=== PATIENT | female | born 1995 | race African-American/Black ===

== ENCOUNTER 2017-06-27 15:38 | Inpatient (IN) | payer MEDICAID ==
[~2017-06-27] VITALS: Ht 165.1 cm; Wt 74.8 kg
--- NOTE | 2017-06-27 16:10 | Emergency Room Report ---
History of Present Illness General Chief Complaint: Gastrointestinal Bleed Source: Patient Present Illness [facility] Patient's 22 female presented after increased rectal bleeding. The patient gradual onset of symptoms. Patient presented intermittent episodes with bloody stool. This had been intermittently. Patient had associated abdominal cramping and diarrhea. Patient stated that she had recently been treated surgical approximately week and a half ago for a left-sided ectopic . As reported having some right-sided pain to her right calf. Allergies: Coded Allergies: No Known Allergies (Unverified , 06/27/17) Patient History Past Medical History: see triage record Last Menstrual Period: now Now: No Reviewed Nursing Documentation: PMH: Agreed, PSxH: Agreed Nursing Documentation-PMH Past Medical History: No History, Except For Review of Systems All Other Systems: negative except mentioned in HPI Physical Exam Vital Signs Date Time Temp Pulse Resp B/P Pulse Ox O2 Delivery O2 Flow Rate FiO2 06/27/17 15:42 97.9 100 18 119/65 99 Room Air Sp02 EP Interpretation: reviewed, normal General Appearance: normal inspection, well appearing, no apparent distress, alert, GCS 15, non-toxic Head: normocephalic, atraumatic ENT: normal ENT inspection, hearing grossly normal, normal voice Neck: normal inspection, full range of motion, supple, no bony tend Respiratory: normal inspection, lungs clear, normal breath sounds, no respiratory distress, no retraction, no wheezing Cardiovascular #1: regular rate, rhythm, no edema Gastrointestinal: normal inspection, normal bowel sounds, non tender, soft, no guarding, no hernia Rectal: normal rectal tone, heme positive stool, hemorrhoids Genitourinary: no CVA tenderness Musculoskeletal: normal inspection, back normal, normal range of motion Neurologic: normal inspection, alert, oriented x3, responsive, typing bookkeeper III-XII nml as tested, speech normal Psychiatric: normal inspection, judgement/insight normal, mood/affect normal Skin: normal inspection, normal color, no rash Medical Decision Making Diagnostic Impression: Primary Impression: Gastrointestinal hemorrhage Additional Impressions: Anemia Right calf pain ER Course The patient presented for rectal bleeding. The differential diagnosis included but was not limited to ulcer, diverticulosis, aortic aneurysm, arteriovenous formation, coagulopathy, cancer among others. The patient appeared to have some melanotic stool. The patient has some hemorrhoids however they do not appear to be actively bleeding . The patient's test is likely positive do to recent ectopic .The patient was noted to have a markedly anemia. The patient was consented for transfusion. The patient was advised risk and benefits of transfusion and she indicated understanding and was willing to accept transfusion. Pelvic ultrasound showed no evidence of a continued hemorhhage or free fluid. Patient was given IV Pepcid. Dr. Augustin was contacted for inpatient management due to complexity of medical condition. The patient was noted to have right calf pain however this does not appear to be any different than her left calf in size. The patient currently has a contraindication to anticoagulation. Labs Test 06/27/17 17:55 White Blood Count 7.1 K/UL (4.8-10.8) Red Blood Count 3.45 M/UL (4.20-5.40) Hemoglobin 6.7 G/DL (12.0-16.0) Hematocrit 21.3 % (37.0-47.0) Mean Corpuscular Volume 62 FL (80-99) Mean Corpuscular Hemoglobin 19.3 PG (27.0-31.0) Mean Corpuscular Hemoglobin Concent 31.4 G/DL (32.0-36.0) Red Cell Distribution Width 14.5 % (11.6-14.8) Platelet Count 444 K/UL (150-450) Mean Platelet Volume 6.7 FL (6.5-10.1) Neutrophils (%) (Auto) % (45.0-75.0) Lymphocytes (%) (Auto) % (20.0-45.0) Monocytes (%) (Auto) % (1.0-10.0) Eosinophils (%) (Auto) % (0.0-3.0) Basophils (%) (Auto) % (0.0-2.0) Differential Total Cells Counted 100 Neutrophils % (Manual) 67 % (45-75) Lymphocytes % (Manual) 23 % (20-45) Monocytes % (Manual) 3 % (1-10) Eosinophils % (Manual) 6 % (0-3) Basophils % (Manual) 0 % (0-2) Band Neutrophils 1 % (0-8) Platelet Estimate Adequate Platelet Morphology Normal Polychromasia 1+ Hypochromasia 2+ Anisocytosis 1+ Microcytosis 2+ Prothrombin Time 11.0 SEC (9.30-11.50) Prothromb Time International Ratio 1.1 (0.9-1.1) Activated Partial Thromboplast Time 24 SEC (23-33) Urine Color Pale yellow Urine Appearance Clear Urine pH 6.5 (4.5-8.0) Urine Specific [place] 1.010 (1.005-1.035) Urine Protein Negative (NEGATIVE) Urine Glucose (UA) Negative (NEGATIVE) Urine Ketones Negative (NEGATIVE) Urine Occult Blood 5+ (NEGATIVE) Urine Nitrite Negative (NEGATIVE) Urine Bilirubin Negative (NEGATIVE) Urine Urobilinogen Normal MG/DL (0.0-1.0) Urine Leukocyte Esterase 1+ (NEGATIVE) Urine RBC 0-2 /HPF (0 - 2) Urine WBC 2-4 /HPF (0 - 2) Urine Squamous Epithelial Cells Moderate /LPF (NONE/OCC) Urine Bacteria Few /HPF (NONE) Urine HCG, Qualitative Positive Sodium Level 142 mEQ/L (135-145) Potassium Level 3.7 mEQ/L (3.4-4.9) Chloride Level 105 mEQ/L (98-107) Carbon Dioxide Level 27 mEQ/L (20-30) Anion Gap 10 (5-15) Blood Urea Nitrogen 9 mg/dL (7-23) Creatinine 0.7 mg/dL (0.5-0.9) Estimat Glomerular Filtration Rate > 60 mL/min (>60) Glucose Level 86 mg/dL (74-106) Calcium Level 8.7 mg/dL (8.6-10.2) Total Bilirubin 0.3 mg/dL (0.0-1.2) Aspartate Amino Transf (AST/SGOT) 9 U/L (5-40) Alanine Aminotransferase (ALT/SGPT) 5 U/L (3-33) Alkaline Phosphatase 72 U/L (35-104) Total Protein 7.8 g/dL (6.6-8.7) Albumin 3.3 g/dL (3.5-5.2) Globulin 4.5 g/dL Albumin/Globulin Ratio 0.7 (1.0-2.7) Lipase 40 U/L (< 60) Human Chorionic Gonadotropin, Quant 96 mIU/mL Rhythm Strip Diag. Results EP Interpretation: yes Rhythm: NSR, no PVC's, no ectopy Last Vital Signs Date Time Temp Pulse Resp B/P Pulse Ox O2 Delivery O2 Flow Rate FiO2 06/27/17 15:42 97.9 100 18 119/65 99 Room Air Status: unchanged Disposition: ADMITTED INPATIENT Condition: Serious Peter Razo Jun 27, 2017 16:10
[2017-06-27] MEDS ORDERED: Famotidine 20 MG/ 2ML VIAL IVP ONE (16:15)
[2017-06-27 18:15] LABS: MEAN CORPUSCULAR HEMOGLOBIN 19.3 PG (27.0-31.0); MEAN CORPUSCULAR HGB CONC 31.4 G/DL (32.0-36.0); MEAN CORPUSCULAR VOLUME 62 FL (80-99); MEAN PLATELET VOLUME 6.7 FL (6.5-10.1); PLATELET COUNT 444 K/UL (150-450); RED BLOOD COUNT 3.45 M/UL (4.20-5.40); RED CELL DISTRIBUTION WIDTH 14.5 % (11.6-14.8); WHITE BLOOD COUNT 7.1 K/UL (4.8-10.8)
[2017-06-27 18:21] LABS: APPEARANCE,URINE CLEAR; KETONES,URINE NEGATIVE (NEGATIVE); LEUKOCYTE ESTERASE ,URINE 1+ (NEGATIVE); NITRITE,URINE NEGATIVE (NEGATIVE); PH,URINE 6.5 (4.5-8.0); PROTEIN,URINE NEGATIVE (NEGATIVE); UROBILINOGEN,URINE NORMAL MG/DL (0.0-1.0)
[2017-06-27 18:28] LABS: BACTERIA,URINE FEW /HPF; RBC,URINE 0-2 /HPF (0 - 2); SQUAMOUS EPITHELIAL CELL,UR MODERATE /LPF (NONE/OCC)
[2017-06-27 18:33] LABS: INR 1.1 (0.9-1.1)
[2017-06-27 18:36] LABS: ALANINE AMINOTRANSFERASE 5 U/L (3-33); ALBUMIN/GLOBULIN RATIO 0.7 (1.0-2.7); ANION GAP 10 (5-15); ASPARTATE AMINO TRANSFERASE 9 U/L (5-40); CALCIUM 8.7 mg/dL (8.6-10.2); CARBON DIOXIDE 27 mEQ/L (20-30); CHLORIDE 105 mEQ/L (98-107); CREATININE 0.7 mg/dL (0.5-0.9); GLOMERULAR FILTRATION RATE > 60 mL/min (>60); HEMOLYSIS 1; LIPASE 40 U/L (< 60); POTASSIUM 3.7 mEQ/L (3.4-4.9); SODIUM 142 mEQ/L (135-145); TOTAL PROTEIN 7.8 g/dL (6.6-8.7)
[2017-06-27 18:37] VITALS: BP 130/56
[2017-06-27] MEDS ORDERED: NKM (18:47)
[2017-06-27 19:50] LABS: BAND NEUTROPHILS % (MANUAL) 1 % (0-8); EOSINOPHILS % (MANUAL) 6 % (0-3); LYMPHOCYTES % (MANUAL) 23 % (20-45); NEUTROPHILS % (MANUAL) 67 % (45-75); TOTAL CELLS COUNTED 100
[2017-06-27 19:51] LABS: ANISOCYTOSIS 1+; BASOPHILS % (MANUAL) 0 % (0-2); HYPOCHROMASIA 2+; MICROCYTES 2+; PLATELET ESTIMATE ADEQUATE; PLATELET MORPHOLOGY NORMAL; POLYCHROMASIA 1+
[2017-06-27 22:04] VITALS: BP 137/87
[2017-06-27] MEDS ORDERED: Mylanta II UD 30ml ORAL PRN (22:15)
[2017-06-27] MEDS ORDERED: Nitroglycerin Subl 0.4mg tab (Bottle Of 25) SL PRN (22:15)
[2017-06-27] MEDS ORDERED: Miralax 17gm pkt ORAL PRN (22:15)
[2017-06-27] MEDS ORDERED: Phytonadione 10 MG in D5W 55 ML IVPB ONE (23:00)
[2017-06-27 23:59] VITALS: BP 124/74
[2017-06-28] VITALS (7 sets, daily range): BP systolic 121–128; BP diastolic 61–78
[2017-06-28] MEDS: Morphine Sulfate 2mg/ml Inj IVP PRN ×3 (00:42→20:47)
[2017-06-28] MEDS ORDERED: Phytonadione 10 mg/mL 1ml amp ONE (04:27)
[2017-06-28] MEDS: D5NS 1,000 ML IV SCH ×4 (04:52→23:47)
[2017-06-28 07:28] LABS: MEAN CORPUSCULAR HEMOGLOBIN 20.4 PG (27.0-31.0); MEAN CORPUSCULAR HGB CONC 29.9 G/DL (32.0-36.0); MEAN CORPUSCULAR VOLUME 68 FL (80-99); PLATELET COUNT 357 K/UL (150-450); RED BLOOD COUNT 3.72 M/UL (4.20-5.40); RED CELL DISTRIBUTION WIDTH 19.3 % (11.6-14.8)
[2017-06-28 07:35] LABS: ALANINE AMINOTRANSFERASE 5 U/L (3-33); ALBUMIN/GLOBULIN RATIO 0.7 (1.0-2.7); AMYLASE 64 U/L (10-110); ANION GAP 7 (5-15); ASPARTATE AMINO TRANSFERASE 8 U/L (5-40); CALCIUM 8.4 mg/dL (8.6-10.2); CARBON DIOXIDE 27 mEQ/L (20-30); CHLORIDE 107 mEQ/L (98-107); CREATININE 0.7 mg/dL (0.5-0.9); GLOMERULAR FILTRATION RATE > 60 mL/min (>60); HEMOLYSIS 0; LIPASE 23 U/L (< 60); POTASSIUM 3.6 mEQ/L (3.4-4.9); SODIUM 141 mEQ/L (135-145)
[2017-06-28 07:41] LABS: FERRITIN 5 ng/mL (13-150)
--- NOTE | 2017-06-28 07:44 | History and Physical ---
History of Present Illness General Date patient seen: Jun 28, 2017 Time patient seen: 07:00 Reason for Hospitalization: Gastrointestinal Bleed Present Illness HPI 22 y/old female w/out significant PMH presented after rectal bleeding. Patient reported intermittent episodes of bloody stools with associated abdominal cramping and diarrhea. Patient reported surgery week and a half ago for a left-sided ectopic . Patient also reported having some right-sided pain to her right calf. Denies chest pain, SOB no fevers, chills workup in ED reveled no leucocytosis anemia-6.7/21.3 stable lytes and renal paarmerts patient was admitted to [facility] floor for further management currently denies abdominal pain, no n/v/ no hematemesis Allergies: Coded Allergies: No Known Allergies (Unverified , 06/27/17) Medication History Scheduled No Known Medications* (NKM - No Known Medications*), 0 ., (Reported) Patient History History Provided By: Patient Healthcare decision maker N Resuscitation status Full Code Advanced Directive on File Review of Systems All Other Systems: negative except mentioned in HPI Physical Exam General Appearance: no apparent distress, alert Lines, tubes and drains: peripheral HEENT: normocephalic, atraumatic, anicteric, mucous membranes moist, PERRL Neck: non-tender, supple, normal inspection Respiratory/Chest: chest wall non-tender, lungs clear, normal breath sounds, no respiratory distress, no accessory muscle use Cardiovascular/Chest: normal peripheral pulses, normal rate, regular rhythm, no JVD Abdomen: normal bowel sounds, non tender, soft Extremities: normal range of motion, non-tender, no calf tenderness, normal capillary refill Neurologic: hospital pharmacy technician II-XII grossly normal, no motor/sensory deficits, alert Musculoskeletal: normal muscle bulk Last 24 Hour Vital Signs Date Time Temp Pulse Resp B/P Pulse Ox O2 Delivery O2 Flow Rate FiO2 06/28/17 04:00 72 06/28/17 03:55 98.3 86 18 122/61 94 Room Air 06/28/17 00:00 80 06/27/17 23:59 98.5 82 17 124/74 96 Room Air 06/27/17 22:04 96.4 97 19 137/87 100 Room Air 06/27/17 21:44 99.1 93 16 126/62 100 Room Air 06/27/17 21:16 99.1 91 16 06/27/17 21:03 99.0 98 17 06/27/17 18:37 97.9 90 16 130/56 100 Room Air 06/27/17 15:42 97.9 100 18 119/65 99 Room Air Intake and Output 06/27/17 06/28/17 19:00 07:00 Intake Total 500 ml 169 ml Balance 500 ml 169 ml Intake IV Total 169 ml Other 500 ml # Voids 1 Laboratory Tests Test 06/27/17 17:55 06/28/17 06:40 White Blood Count 7.1 K/UL (4.8-10.8) 7.0 K/UL (4.8-10.8) Red Blood Count 3.45 M/UL (4.20-5.40) L 3.72 M/UL (4.20-5.40) L Hemoglobin 6.7 G/DL (12.0-16.0) *L 7.6 G/DL (12.0-16.0) L Hematocrit 21.3 % (37.0-47.0) L 25.4 % (37.0-47.0) L Mean Corpuscular Volume 62 FL (80-99) L 68 FL (80-99) #L Mean Corpuscular Hemoglobin 19.3 PG (27.0-31.0) L 20.4 PG (27.0-31.0) L Mean Corpuscular Hemoglobin Concent 31.4 G/DL (32.0-36.0) L 29.9 G/DL (32.0-36.0) L Red Cell Distribution Width 14.5 % (11.6-14.8) 19.3 % (11.6-14.8) H Platelet Count 444 K/UL (150-450) 357 K/UL (150-450) Mean Platelet Volume 6.7 FL (6.5-10.1) 6.0 FL (6.5-10.1) L Neutrophils (%) (Auto) % (45.0-75.0) % (45.0-75.0) Lymphocytes (%) (Auto) % (20.0-45.0) % (20.0-45.0) Monocytes (%) (Auto) % (1.0-10.0) % (1.0-10.0) Eosinophils (%) (Auto) % (0.0-3.0) % (0.0-3.0) Basophils (%) (Auto) % (0.0-2.0) % (0.0-2.0) Differential Total Cells Counted 100 Neutrophils % (Manual) 67 % (45-75) Pending Lymphocytes % (Manual) 23 % (20-45) Pending Monocytes % (Manual) 3 % (1-10) Eosinophils % (Manual) 6 % (0-3) H Basophils % (Manual) 0 % (0-2) Band Neutrophils 1 % (0-8) Platelet Estimate Adequate Pending Platelet Morphology Normal Pending Polychromasia 1+ Hypochromasia 2+ Anisocytosis 1+ Microcytosis 2+ Prothrombin Time 11.0 SEC (9.30-11.50) Pending Prothromb Time International Ratio 1.1 (0.9-1.1) Pending Activated Partial Thromboplast Time 24 SEC (23-33) Pending Urine Color Pale yellow Urine Appearance Clear Urine pH 6.5 (4.5-8.0) Urine Specific [place] 1.010 (1.005-1.035) Urine Protein Negative (NEGATIVE) Urine Glucose (UA) Negative (NEGATIVE) Urine Ketones Negative (NEGATIVE) Urine Occult Blood 5+ (NEGATIVE) H Urine Nitrite Negative (NEGATIVE) Urine Bilirubin Negative (NEGATIVE) Urine Urobilinogen Normal MG/DL (0.0-1.0) Urine Leukocyte Esterase 1+ (NEGATIVE) H Urine RBC 0-2 /HPF (0 - 2) Urine WBC 2-4 /HPF (0 - 2) Urine Squamous Epithelial Cells Moderate /LPF (NONE/OCC) H Urine Bacteria Few /HPF (NONE) Urine HCG, Qualitative Positive Sodium Level 142 mEQ/L (135-145) Pending Potassium Level 3.7 mEQ/L (3.4-4.9) Pending Chloride Level 105 mEQ/L (98-107) Pending Carbon Dioxide Level 27 mEQ/L (20-30) Pending Anion Gap 10 (5-15) Blood Urea Nitrogen 9 mg/dL (7-23) Pending Creatinine 0.7 mg/dL (0.5-0.9) Pending Estimat Glomerular Filtration Rate > 60 mL/min (>60) Pending Glucose Level 86 mg/dL (74-106) Pending Calcium Level 8.7 mg/dL (8.6-10.2) Pending Total Bilirubin 0.3 mg/dL (0.0-1.2) Pending Aspartate Amino Transf (AST/SGOT) 9 U/L (5-40) Pending Alanine Aminotransferase (ALT/SGPT) 5 U/L (3-33) Pending Alkaline Phosphatase 72 U/L (35-104) Pending Total Protein 7.8 g/dL (6.6-8.7) Pending Albumin 3.3 g/dL (3.5-5.2) L Pending Globulin 4.5 g/dL Pending Albumin/Globulin Ratio 0.7 (1.0-2.7) L Lipase 40 U/L (< 60) Pending Human Chorionic Gonadotropin, Quant 96 mIU/mL Iron Level Pending Unsaturated Iron Binding Pending Ferritin Pending Amylase Level Pending Vitamin B12 Level Pending Folate Pending Height (Feet): 5 Height (Inches): 5.00 Weight (Pounds): 165 Medications Current Medications Medications (Trade) Dose Ordered Sig/Mayank Route PRN Reason Start Time Stop Time Status Last Admin Dose Admin Acetaminophen (Tylenol) 650 mg Q4H PRN ORAL fever 06/27/17 22:15 07/27/17 22:14 Al Hydroxide/Mg Hydroxide (Mylanta II) 30 ml Q6H PRN ORAL dyspepsia 06/27/17 22:15 07/27/17 22:14 Dextrose (Dextrose 50%) STAT PRN IV Hypoglycemia 06/27/17 21:15 07/27/17 21:14 Dextrose/Sodium Chloride (D5ns) 1,000 ml @ 100 mls/hr Q10H IV 06/27/17 23:00 07/27/17 22:59 06/28/17 04:52 Diphenhydramine HCl (Benadryl) 25 mg Q6H PRN ORAL Itching/Pruritis 06/27/17 22:15 07/27/17 22:14 Morphine Sulfate (Morphine Sulfate) 2 mg EVERY 4 HOURS PRN IVP severe Pain (Pain Scale 7-10) 06/27/17 22:15 07/04/17 22:14 06/28/17 00:42 Nitroglycerin 0.4 mg 0.4 mg Q5M X 3 DOSES PRN SL Prn Chest Pain 06/27/17 22:15 07/27/17 22:14 Ondansetron HCl (Zofran) 4 mg Q6H PRN IVP Nausea & Vomiting 06/27/17 21:15 07/27/17 21:14 Polyethylene Glycol (Miralax) 17 gm HSPRN PRN ORAL Constipation 06/27/17 22:15 07/27/17 22:14 Temazepam (Restoril) 15 mg HSPRN PRN ORAL Insomnia 06/27/17 22:15 07/04/17 22:14 Assessment/Plan Assessment/Plan ASSESSMENT GI hemorrhage rectal bleeding microcytic anemia hx of recent ectopic R calf pain PLAN OF CARE IVF s/p transfusion monitor HH anemia w/up Venous Duplex BLE pain management Pelvic/TV US GI eval appreciated colonoscopy on Friday transfer to [facility] floor case discussed and evaluated by supervising physician Tree Marroquinmarcos)Minna NP Jun 28, 2017 07:44
[2017-06-28 07:46] LABS: INR 1.1 (0.9-1.1); PROTHROMBIN TIME 11.3 SEC (9.30-11.50)
[2017-06-28 08:02] LABS: IRON 36 ug/dL (37-145); TOTAL IRON BINDING CAPACITY 247 ug/dL (250-400)
[2017-06-28 09:26] LABS: EOSINOPHILS % (MANUAL) 5 % (0-3); LYMPHOCYTES % (MANUAL) 23 % (20-45); NEUTROPHILS % (MANUAL) 68 % (45-75); TOTAL CELLS COUNTED 100
[2017-06-28 09:27] LABS: ANISOCYTOSIS 1+; BAND NEUTROPHILS % (MANUAL) 0 % (0-8); BASOPHILS % (MANUAL) 0 % (0-2); HYPOCHROMASIA 1+; MICROCYTES 1+; PLATELET ESTIMATE ADEQUATE; PLATELET MORPHOLOGY NORMAL
--- NOTE | 2017-06-28 11:15 | Consultation ---
DATE OF CONSULTATION: 06/28/2017 GASTROENTEROLOGY CONSULTATION CHIEF COMPLAINT: No GI bleeding. HISTORY OF PRESENT ILLNESS: This is a 22-year-old female admitted to the hospital with complaint of rectal bleeding for almost a month. The patient denies any rectal pain, sometimes is fresh blood and sometimes is dark blood. No nausea. No vomiting. The patient also has some complaint of abdominal pain. PAST MEDICAL HISTORY: History of ectopic . MEDICATIONS: Please see medication reconciliation list. ALLERGIES: No known drug allergies. SOCIAL HISTORY: The patient denies any tobacco, alcohol abuse, or IV drug abuse. FAMILY HISTORY: Noncontributory. REVIEW OF SYSTEMS: A 10-point review of systems was performed and pertinent positives in the history of present illness. PHYSICAL EXAMINATION: VITAL SIGNS: Temperature 97.9, pulse is 70, respiration 18, and blood pressure is 126/55. HEENT: Normocephalic and atraumatic. Sclerae anicteric. NECK: Supple. No lymphadenopathy. CARDIOVASCULAR: Regular rate and rhythm. Plus S1 and S2. LUNGS: Decreased breath sounds bilaterally based on the supine exam. ABDOMEN: Soft and nontender. No rebound. No guarding. No peritoneal sign. EXTREMITIES: No cyanosis. No clubbing. No edema. LABORATORY DATA: On admission, white count 7.1, hemoglobin 6.7, and platelet count is 444,000. ASSESSMENT AND PLAN: This is a 22-year-old female with severe rectal bleeding. Hemoglobin down to 6.7. The patient is receiving blood transfusion. The patient needs a colonoscopy on Friday. The patient was informed of the risks and benefits of procedure and the patient agreed. We will plan for Friday. I want to thank, Dr. Rothman for this kind referral. Cristobal Cesar M.D. DR: NIEVES JOB#: [id number] CC: Derick Rothman M.D.; Fax#: [phone]
[2017-06-28] MEDS ORDERED: Tubing IV Secondary IV ONE (15:38)
[2017-06-28] MEDS ORDERED: NS 275ml ONE (15:38)
[2017-06-28] MEDS ORDERED: Tubing Blood Filter IV ONE (15:38)
[2017-06-28] MEDS ORDERED: D5NS 1000ml IV ONE (15:38)
[2017-06-28] MEDS ORDERED: Nitroglycerin Subl 0.4mg tab (Bottle Of 25) SL PRN (23:15)
[2017-06-29 00:48] VITALS: BP 134/81
[2017-06-29] MEDS ORDERED: Mylanta II UD 30ml ORAL PRN (04:15)
[2017-06-29 04:37] VITALS: BP 119/71
[2017-06-29 07:23] LABS: BASOPHILS % (AUTO) 0.6 % (0.0-2.0); EOSINOPHILS % (AUTO) 5.1 % (0.0-3.0); MEAN CORPUSCULAR HEMOGLOBIN 21.4 PG (27.0-31.0); MEAN CORPUSCULAR HGB CONC 30.5 G/DL (32.0-36.0); MEAN CORPUSCULAR VOLUME 70 FL (80-99); MEAN PLATELET VOLUME 7.2 FL (6.5-10.1); MONOCYTES % (AUTO) 8.1 % (1.0-10.0); NEUTROPHILS % (AUTO) 61.3 % (45.0-75.0); PLATELET COUNT 366 K/UL (150-450); RED BLOOD COUNT 3.72 M/UL (4.20-5.40); RED CELL DISTRIBUTION WIDTH 20.9 % (11.6-14.8); WHITE BLOOD COUNT 7.1 K/UL (4.8-10.8)
[2017-06-29 07:32] LABS: ANION GAP 11 (5-15); CALCIUM 8.5 mg/dL (8.6-10.2); CARBON DIOXIDE 24 mEQ/L (20-30); CHLORIDE 106 mEQ/L (98-107); CREATININE 0.6 mg/dL (0.5-0.9); GLOMERULAR FILTRATION RATE > 60 mL/min (>60); HEMOLYSIS 0; POTASSIUM 3.6 mEQ/L (3.4-4.9); SODIUM 141 mEQ/L (135-145)
[2017-06-29 08:17] VITALS: BP 121/74
[2017-06-29] MEDS: D5NS 1,000 ML IV SCH ×2 (09:39→18:27)
--- NOTE | 2017-06-29 11:26 | General Progress Note ---
Assessment/Plan Problem List: (1) Right calf pain ICD Codes: M79.661 - Pain in right lower leg SNOMED: 840351681 (2) Gastrointestinal hemorrhage ICD Codes: K92.2 - Gastrointestinal hemorrhage, unspecified SNOMED: 04590119 (3) Anemia ICD Codes: D64.9 - Anemia, unspecified SNOMED: 474700882 Assessment/Plan plan colonoscopy tomorrow Subjective ROS Limited/Unobtainable: Yes Allergies: Coded Allergies: No Known Allergies (Unverified , 06/27/17) Subjective no event Objective Last 24 Hour Vital Signs Date Time Temp Pulse Resp B/P Pulse Ox O2 Delivery O2 Flow Rate FiO2 06/29/17 08:17 98.2 74 20 121/74 97 Room Air 06/29/17 04:37 98.2 72 18 119/71 98 Room Air 06/29/17 00:48 98.3 86 19 134/81 97 Room Air 06/28/17 20:13 97.5 75 20 124/78 100 Room Air 06/28/17 16:27 98.2 06/28/17 15:45 78 06/28/17 15:45 97.9 76 18 121/71 06/28/17 14:00 98.2 75 18 128/70 06/28/17 13:45 97.9 77 18 128/65 06/28/17 12:50 97.5 77 18 124/65 99 Room Air 06/28/17 12:21 83 Intake and Output 06/28/17 06/29/17 19:00 07:00 Intake Total 1150 ml 240 ml Balance 1150 ml 240 ml Intake Oral 240 ml IV Total 900 ml Blood Product 250 ml # Voids 1 Laboratory Tests 06/29/17 05:10: White Blood Count 7.1, Red Blood Count 3.72L, Hemoglobin 8.0L, Hematocrit 26.1L , Mean Corpuscular Volume 70L, Mean Corpuscular Hemoglobin 21.4L, Mean Corpuscular Hemoglobin Concent 30.5L, Red Cell Distribution Width 20.9H, Platelet Count 366, Mean Platelet Volume 7.2, Neutrophils (%) (Auto) 61.3, Lymphocytes (%) (Auto) 25.0, Monocytes (%) (Auto) 8.1, Eosinophils (%) (Auto) 5.1H, Basophils (%) (Auto) 0.6, Sodium Level 141, Potassium Level 3.6, Chloride Level 106, Carbon Dioxide Level 24, Anion Gap 11, Blood Urea Nitrogen 7, Creatinine 0.6, Estimat Glomerular Filtration Rate > 60, Glucose Level 70L, Calcium Level 8.5L Height (Feet): 5 Height (Inches): 5.00 Weight (Pounds): 165 General Appearance: alert EENT: normal ENT inspection Neck: supple Cardiovascular: normal rate Respiratory/Chest: lungs clear Abdomen: normal bowel sounds, non tender, soft Extremities: non-tender LACEY SCOTT Jun 29, 2017 11:26
[2017-06-29] MEDS ORDERED: Bisacodyl EC 5mg tab ORAL ONE (11:30)
[2017-06-29] MEDS ORDERED: Nulytely 4L ORAL ONE (12:30)
--- NOTE | 2017-06-29 13:06 | Pulmonology Progress Note ---
Assessment/Plan Assessment/Plan ASSESSMENT GI hemorrhage rectal bleeding microcytic anemia hx of recent ectopic R calf pain PLAN OF CARE [facility] floor IVF s/p 3 u PRBC transfusion monitor HH , anemia w/up with low iron and low ferritin Venous Duplex BLE pain management Pelvic/TV US GI follows colonoscopy on Friday case discussed and evaluated by supervising physician Subjective Allergies: Coded Allergies: No Known Allergies (Unverified , 06/27/17) Subjective s/p 3 u PRBC HH up to 8.0/26.1 no further rectal bleeding intermittent abdominal pain Objective Last 24 Hour Vital Signs Date Time Temp Pulse Resp B/P Pulse Ox O2 Delivery O2 Flow Rate FiO2 06/29/17 08:17 98.2 74 20 121/74 97 Room Air 06/29/17 04:37 98.2 72 18 119/71 98 Room Air 06/29/17 00:48 98.3 86 19 134/81 97 Room Air 06/28/17 20:13 97.5 75 20 124/78 100 Room Air 06/28/17 16:27 98.2 06/28/17 15:45 78 06/28/17 15:45 97.9 76 18 121/71 06/28/17 14:00 98.2 75 18 128/70 06/28/17 13:45 97.9 77 18 128/65 Intake and Output 06/28/17 06/29/17 19:00 07:00 Intake Total 1150 ml 240 ml Balance 1150 ml 240 ml Intake Oral 240 ml IV Total 900 ml Blood Product 250 ml # Voids 1 Objective General Appearance: no apparent distress, alert Lines, tubes and drains: peripheral HEENT: normocephalic, atraumatic, anicteric, mucous membranes moist, PERRL Neck: non-tender, supple, normal inspection Respiratory/Chest: chest wall non-tender, lungs clear, normal breath sounds, no respiratory distress, no accessory muscle use Cardiovascular/Chest: normal peripheral pulses, normal rate, regular rhythm, no JVD Abdomen: normal bowel sounds, non tender, soft Extremities: normal range of motion, non-tender, no calf tenderness, normal capillary refill 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, no motor/sensory deficits, alert Musculoskeletal: normal muscle bulk Laboratory Tests 06/29/17 05:10: White Blood Count 7.1, Red Blood Count 3.72L, Hemoglobin 8.0L, Hematocrit 26.1L , Mean Corpuscular Volume 70L, Mean Corpuscular Hemoglobin 21.4L, Mean Corpuscular Hemoglobin Concent 30.5L, Red Cell Distribution Width 20.9H, Platelet Count 366, Mean Platelet Volume 7.2, Neutrophils (%) (Auto) 61.3, Lymphocytes (%) (Auto) 25.0, Monocytes (%) (Auto) 8.1, Eosinophils (%) (Auto) 5.1H, Basophils (%) (Auto) 0.6, Sodium Level 141, Potassium Level 3.6, Chloride Level 106, Carbon Dioxide Level 24, Anion Gap 11, Blood Urea Nitrogen 7, Creatinine 0.6, Estimat Glomerular Filtration Rate > 60, Glucose Level 70L, Calcium Level 8.5L Current Medications Medications (Trade) Dose Ordered Sig/Mayank Route PRN Reason Start Time Stop Time Status Last Admin Dose Admin Acetaminophen (Tylenol) 650 mg Q4H PRN ORAL fever 06/29/17 02:15 07/29/17 02:14 Al Hydroxide/Mg Hydroxide (Mylanta II) 30 ml Q6H PRN ORAL dyspepsia 06/29/17 04:15 07/29/17 04:14 Dextrose (Dextrose 50%) STAT PRN IV Hypoglycemia 06/29/17 21:15 07/29/17 21:14 Dextrose/Sodium Chloride (D5ns) 1,000 ml @ 100 mls/hr Q10H IV 06/28/17 23:15 07/28/17 23:14 06/29/17 09:39 Diphenhydramine HCl (Benadryl) 25 mg Q6H PRN ORAL Itching/Pruritis 06/29/17 04:15 07/29/17 04:14 Morphine Sulfate (Morphine Sulfate) 2 mg EVERY 4 HOURS PRN IVP severe Pain (Pain Scale 7-10) 06/29/17 01:00 07/06/17 00:59 Nitroglycerin (Ntg) 0.4 mg Q5M X 3 DOSES PRN SL Prn Chest Pain 06/28/17 23:15 07/28/17 23:14 Ondansetron HCl (Zofran) 4 mg Q6H PRN IVP Nausea & Vomiting 06/29/17 03:15 07/29/17 03:14 Polyethylene Glycol (Miralax) 17 gm HSPRN PRN ORAL Constipation 06/29/17 22:15 07/29/17 22:14 Temazepam (Restoril) 15 mg HSPRN PRN ORAL Insomnia 06/29/17 22:15 07/06/17 22:14 Tree ([facility])Minna NP Jun 29, 2017 13:06
[2017-06-29] MEDS ORDERED: NS 275ml ONE (15:09)
[2017-06-29] MEDS ORDERED: Tubing Blood Filter IV ONE (15:09)
[2017-06-29 16:06] VITALS: BP 123/70
[2017-06-29] MEDS ORDERED: D5 1/2NS 1000ml IV ONE (16:06)
[2017-06-29] MEDS ORDERED: D5NS 1000ml IV ONE (16:06)
[2017-06-29] MEDS ORDERED: Polyethylene Glycol 238gm bottle ORAL ONE (18:30)
[2017-06-29 20:34] VITALS: BP 125/77
[2017-06-29] MEDS ORDERED: Miralax 17gm pkt ORAL PRN (22:15)
[2017-06-30] VITALS (10 sets, daily range): BP systolic 100–134; BP diastolic 49–82
[2017-06-30] MEDS: D5NS 1,000 ML IV SCH ×2 (06:04→15:15)
--- NOTE | 2017-06-30 09:51 | Pre-Procedure Note/Attestation ---
Pre-Procedure Note/Attestation Complete Prior to Procedure Planned Procedure: not applicable Procedure Narrative: colonoscopy Indications for Procedure Pre-Operative Diagnosis: rectal bleed Attestation I attest that I discussed the nature of the procedure; its benefits; risks and complications; and alternatives (and the risks and benefits of such alternatives ), prior to the procedure, with the patient (or the patient's legal contact center representative). I attest that, if there was a reasonable possibility of needing a blood transfusion, the patient (or the patient's legal contact center representative) was given the [facility] standardized written summary, pursuant to the Alphonso Steff Blood Safety Act ([place] Health and Safety Code # 1645, as amended). I attest that I re-evaluated the patient just prior to the surgery and that there has been no change in the patient's H&P, except as documented below: LACEY SCOTT Jun 30, 2017 09:51
[2017-06-30] MEDS ORDERED: Propofol 10mg/ml 20ml IV ONE (10:00)
[2017-06-30] MEDS ORDERED: Lidocaine 1% MPF 10mg/ml 5ml ONE (10:00)
[2017-06-30] MEDS ORDERED: NS 550ML IV ONE (10:05)
--- NOTE | 2017-06-30 10:31 | Anethesia Preoperative Eval ---
Anesthesia Pre-op PMH/ROS General Date of Evaluation: Jun 30, 2017 Anesthesiologist: orin ASA Score: ASA 2 Mallampati Score Class I : Soft palate, uvula, fauces, pillars visible Class II: Soft palate, uvula, fauces visible Class III: Soft palate, base of uvula visible Class IV: Only hard plate visible Mallampati Classification: Class II Surgeon: mark Diagnosis: anemia Surgical Procedure: colonoscopy Anesthesia History: none Social History: current smoker Family History: no anesthesia problems Allergies: Coded Allergies: No Known Allergies (Unverified , 06/27/17) Medications: see eMAR Past Medical History Hematology/Immune: Reports: anemia Anesthesia Pre-op Phys. Exam Physician Exam Last Vital Signs Date Time Temp Pulse Resp B/P Pulse Ox O2 Delivery O2 Flow Rate FiO2 06/30/17 08:00 99.1 70 17 113/65 99 Room Air Constitutional: NAD Neurologic: CN 2-12 intact Respiratory: CTA Gastrointestinal: S/NT/ND Airway Exam Mallampati Score: Class II MO: full Neck: supple TMD: 2fb ROM: full Teeth: intact Anesthesia Pre-op A/P Labs Labs Test 06/27/17 17:55 06/28/17 06:40 06/29/17 05:10 White Blood Count 7.1 K/UL (4.8-10.8) 7.0 K/UL (4.8-10.8) 7.1 K/UL (4.8-10.8) Red Blood Count 3.45 M/UL (4.20-5.40) 3.72 M/UL (4.20-5.40) 3.72 M/UL (4.20-5.40) Hemoglobin 6.7 G/DL (12.0-16.0) 7.6 G/DL (12.0-16.0) 8.0 G/DL (12.0-16.0) Hematocrit 21.3 % (37.0-47.0) 25.4 % (37.0-47.0) 26.1 % (37.0-47.0) Mean Corpuscular Volume 62 FL (80-99) 68 FL (80-99) 70 FL (80-99) Mean Corpuscular Hemoglobin 19.3 PG (27.0-31.0) 20.4 PG (27.0-31.0) 21.4 PG (27.0-31.0) Mean Corpuscular Hemoglobin Concent 31.4 G/DL (32.0-36.0) 29.9 G/DL (32.0-36.0) 30.5 G/DL (32.0-36.0) Red Cell Distribution Width 14.5 % (11.6-14.8) 19.3 % (11.6-14.8) 20.9 % (11.6-14.8) Platelet Count 444 K/UL (150-450) 357 K/UL (150-450) 366 K/UL (150-450) Mean Platelet Volume 6.7 FL (6.5-10.1) 6.0 FL (6.5-10.1) 7.2 FL (6.5-10.1) Neutrophils (%) (Auto) % (45.0-75.0) % (45.0-75.0) 61.3 % (45.0-75.0) Lymphocytes (%) (Auto) % (20.0-45.0) % (20.0-45.0) 25.0 % (20.0-45.0) Monocytes (%) (Auto) % (1.0-10.0) % (1.0-10.0) 8.1 % (1.0-10.0) Eosinophils (%) (Auto) % (0.0-3.0) % (0.0-3.0) 5.1 % (0.0-3.0) Basophils (%) (Auto) % (0.0-2.0) % (0.0-2.0) 0.6 % (0.0-2.0) Differential Total Cells Counted 100 100 Neutrophils % (Manual) 67 % (45-75) 68 % (45-75) Lymphocytes % (Manual) 23 % (20-45) 23 % (20-45) Monocytes % (Manual) 3 % (1-10) 4 % (1-10) Eosinophils % (Manual) 6 % (0-3) 5 % (0-3) Basophils % (Manual) 0 % (0-2) 0 % (0-2) Band Neutrophils 1 % (0-8) 0 % (0-8) Platelet Estimate Adequate Adequate Platelet Morphology Normal Normal Polychromasia 1+ Hypochromasia 2+ 1+ Anisocytosis 1+ 1+ Microcytosis 2+ 1+ Prothrombin Time 11.0 SEC (9.30-11.50) 11.3 SEC (9.30-11.50) Prothromb Time International Ratio 1.1 (0.9-1.1) 1.1 (0.9-1.1) Activated Partial Thromboplast Time 24 SEC (23-33) 25 SEC (23-33) Urine Color Pale yellow Urine Appearance Clear Urine pH 6.5 (4.5-8.0) Urine Specific [place] 1.010 (1.005-1.035) Urine Protein Negative (NEGATIVE) Urine Glucose (UA) Negative (NEGATIVE) Urine Ketones Negative (NEGATIVE) Urine Occult Blood 5+ (NEGATIVE) Urine Nitrite Negative (NEGATIVE) Urine Bilirubin Negative (NEGATIVE) Urine Urobilinogen Normal MG/DL (0.0-1.0) Urine Leukocyte Esterase 1+ (NEGATIVE) Urine RBC 0-2 /HPF (0 - 2) Urine WBC 2-4 /HPF (0 - 2) Urine Squamous Epithelial Cells Moderate /LPF (NONE/OCC) Urine Bacteria Few /HPF (NONE) Urine HCG, Qualitative Positive Sodium Level 142 mEQ/L (135-145) 141 mEQ/L (135-145) 141 mEQ/L (135-145) Potassium Level 3.7 mEQ/L (3.4-4.9) 3.6 mEQ/L (3.4-4.9) 3.6 mEQ/L (3.4-4.9) Chloride Level 105 mEQ/L (98-107) 107 mEQ/L (98-107) 106 mEQ/L (98-107) Carbon Dioxide Level 27 mEQ/L (20-30) 27 mEQ/L (20-30) 24 mEQ/L (20-30) Anion Gap 10 (5-15) 7 (5-15) 11 (5-15) Blood Urea Nitrogen 9 mg/dL (7-23) 9 mg/dL (7-23) 7 mg/dL (7-23) Creatinine 0.7 mg/dL (0.5-0.9) 0.7 mg/dL (0.5-0.9) 0.6 mg/dL (0.5-0.9) Estimat Glomerular Filtration Rate > 60 mL/min (>60) > 60 mL/min (>60) > 60 mL/min (>60) Glucose Level 86 mg/dL (74-106) 84 mg/dL (74-106) 70 mg/dL (74-106) Calcium Level 8.7 mg/dL (8.6-10.2) 8.4 mg/dL (8.6-10.2) 8.5 mg/dL (8.6-10.2) Total Bilirubin 0.3 mg/dL (0.0-1.2) 0.6 mg/dL (0.0-1.2) Aspartate Amino Transf (AST/SGOT) 9 U/L (5-40) 8 U/L (5-40) Alanine Aminotransferase (ALT/SGPT) 5 U/L (3-33) 5 U/L (3-33) Alkaline Phosphatase 72 U/L (35-104) 63 U/L (35-104) Total Protein 7.8 g/dL (6.6-8.7) 7.0 g/dL (6.6-8.7) Albumin 3.3 g/dL (3.5-5.2) 2.9 g/dL (3.5-5.2) Globulin 4.5 g/dL 4.1 g/dL Albumin/Globulin Ratio 0.7 (1.0-2.7) 0.7 (1.0-2.7) Lipase 40 U/L (< 60) 23 U/L (< 60) Human Chorionic Gonadotropin, Quant 96 mIU/mL Iron Level 36 ug/dL (37-145) Total Iron Binding Capacity 247 ug/dL (250-400) Percent Iron Saturation 15 % (15-50) Unsaturated Iron Binding 211 ug/dL (112-346) Ferritin 5 ng/mL (13-150) Amylase Level 64 U/L (10-110) Vitamin B12 Level 475 pg/mL (211-946) Urine Test positive Serum Test 96 Risk Assessment & Plan Assessment: asa2 Plan: mac Status Change Before Surgery: No Pre-Antibiotics Drug: BARBARA Andrews Jun 30, 2017 10:31
--- NOTE | 2017-06-30 10:36 | Endoscopy Procedure Note ---
Endoscopy Procedure Note Indication for Procedure: rectal bleed Procedures Performed: colonoscopy Operative Findings/Diagnosis: colitis Specimen: yes Pt Tolerated Procedure Well: Yes Estimated Blood Loss: none Anesthesiologist: bennie Anesthesia: MAC Implant(s) used?: No 50 yrs or older w/o bx or poly: Not Applicable 10yrs. F/U not recommended: Not Applicable LACEY SCOTT Jun 30, 2017 10:36
--- NOTE | 2017-06-30 10:45 | Immediate Post-Op Evaluation ---
Immediate Post-Op Evalulation Immediate Post-Op Evalulation Procedure: colonoscopy Date of Evaluation: Jun 30, 2017 Time of Evaluation: 10:52 IV Fluids: 150ml 0.9ns Blood Products: none Estimated Blood Loss: negligible Blood Pressure Systolic: 119 Blood Pressure Diastolic: 60 Pulse Rate: 75 Respiratory Rate: 18 O2 Sat by Pulse Oximetry: 100 Temperature (Fahrenheit): 97.7 Pain Score (1-10): 0 Nausea: No Vomiting: No Complications none Patient Status: awake, reacts, patent Hydration Status: adequate Drug: BARBARA Andrews Jun 30, 2017 10:45
--- NOTE | 2017-06-30 12:09 | 48 Hour Post Anesthesia Eval ---
Post Anesthesia Evaluation Procedure: colonoscopy Date of Evaluation: Jun 30, 2017 Time of Evaluation: 12:07 Blood Pressure Systolic: 111 0: 54 Pulse Rate: 62 Respiratory Rate: 18 Temperature (Fahrenheit): 97.7 O2 Sat by Pulse Oximetry: 99 Airway: patent Nausea: No Vomiting: No Pain Intensity: 0 Hydration Status: adequate Cardiopulmonary Status: stable Mental Status/LOC: patient returned to baseline Post-Anesthesia Complications: none Follow-up care needed: N/A BARBARA ISAAC Jun 30, 2017 12:09
--- NOTE | 2017-06-30 15:30 | Pulmonology Progress Note ---
Assessment/Plan Problems: (1) Acute hemorrhagic colitis (2) Gastrointestinal hemorrhage (3) Anemia Assessment/Plan IV venofoer f/u h/h f/u GI recommendations Subjective ROS Limited/Unobtainable: No Interval Events: colonoscopy done Allergies: Coded Allergies: No Known Allergies (Unverified , 06/27/17) Objective Last 24 Hour Vital Signs Date Time Temp Pulse Resp B/P Pulse Ox O2 Delivery O2 Flow Rate FiO2 06/30/17 12:09 62 18 99 06/30/17 12:00 97.0 71 18 124/79 98 Room Air 06/30/17 10:58 72 20 129/59 100 Room Air 06/30/17 10:48 68 20 100/49 100 Room Air 06/30/17 10:45 75 18 100 06/30/17 10:43 75 20 119/60 100 Room Air 06/30/17 10:38 97.7 78 20 121/62 100 Room Air 06/30/17 08:00 99.1 70 17 113/65 99 Room Air 06/30/17 04:37 97.5 82 18 134/82 96 Room Air 06/30/17 00:29 97.1 80 19 133/78 98 Room Air 06/29/17 20:34 97.9 78 18 125/77 100 Room Air 06/29/17 16:06 97.9 76 19 123/70 99 Room Air Intake and Output 06/29/17 06/30/17 19:00 07:00 # Voids 1 5 General Appearance: WD/WN HEENT: normocephalic, atraumatic Respiratory/Chest: lungs clear, normal breath sounds Breasts: no masses Cardiovascular: normal peripheral pulses Abdomen: normal bowel sounds, soft, non tender Genitourinary: normal external genitalia Extremities: no clubbing Skin: no lesions Laboratory Tests 06/30/17 12:20: Human Chorionic Gonadotropin, Quant [Pending] Current Medications Medications (Trade) Dose Ordered Sig/Mayank Route PRN Reason Start Time Stop Time Status Last Admin Dose Admin Acetaminophen (Tylenol) 650 mg Q4H PRN ORAL Mild Pain/Temp > 100.5 06/29/17 22:00 07/29/17 21:59 06/29/17 21:52 Al Hydroxide/Mg Hydroxide (Mylanta II) 30 ml Q6H PRN ORAL dyspepsia 06/29/17 04:15 9/5/17 04:14 Dextrose (Dextrose 50%) STAT PRN IV Hypoglycemia 06/29/17 21:15 07/29/17 21:14 Dextrose/Sodium Chloride (D5ns) 1,000 ml @ 100 mls/hr Q10H IV 06/28/17 23:15 07/28/17 23:14 06/30/17 06:04 Diphenhydramine HCl (Benadryl) 25 mg Q6H PRN ORAL Itching/Pruritis 06/29/17 04:15 07/29/17 04:14 Morphine Sulfate (Morphine Sulfate) 2 mg EVERY 4 HOURS PRN IVP severe Pain (Pain Scale 7-10) 06/29/17 01:00 07/06/17 00:59 Nitroglycerin (Ntg) 0.4 mg Q5M X 3 DOSES PRN SL Prn Chest Pain 06/28/17 23:15 07/28/17 23:14 Ondansetron HCl (Zofran) 4 mg Q6H PRN IVP Nausea & Vomiting 06/29/17 18:00 07/29/17 17:59 06/29/17 18:27 Polyethylene Glycol (Miralax) 17 gm HSPRN PRN ORAL Constipation 06/29/17 22:15 07/29/17 22:14 Temazepam (Restoril) 15 mg HSPRN PRN ORAL Insomnia 06/29/17 22:15 07/06/17 22:14 PARK FARRELL Jun 30, 2017 15:30
--- NOTE | 2017-06-30 15:45 | Procedure Note ---
DATE OF PROCEDURE: 06/30/2017 PROCEDURE: Colonoscopy with biopsy. SURGEON: Cristobal Cesar M.D. ANESTHESIA: Candida Landry M.D. INSTRUMENT: Olympus adult flexible colonoscope. INDICATION: Rectal bleeding. REASON FOR PROCEDURE: The procedure, risks, benefits, and possible consequences, including hemorrhage, aspiration, perforation and infection, and alternative treatments, were explained to the patient/legal guardian by Dr. Cristobal Cesar and the patient/legal guardian understood and accepted these risks. DESCRIPTION OF PROCEDURE: After informed consent was obtained and the patient was adequately sedated, first rectal exam was performed, which was positive for external and internal hemorrhoids. Then, the scope was advanced from the cecum into the terminal ileum. Quality of prep was very good. The patient has evidence of mild to moderate inflammation starting from the sigmoid colon all the way to the cecum. The terminal ileum was relatively clean. Rectum was relatively clear. Biopsy from the cecum, transverse colon, sigmoid colon, and also ascending colon was obtained for evaluation. Retroflexion of the rectum showed evidence of internal hemorrhoids. SUMMARY OF FINDINGS: 1. Colitis starting from sigmoid colon all the way to the cecum suspicious for ulcerative colitis, which has been rectum and terminal ileum. 2. Internal and external hemorrhoids. RECOMMENDATIONS: Follow up biopsy results and treat accordingly. I want to thank, Dr. Augustin, for this kind referral. Cristobal Cesar M.D. DR: NANCY JOB#: [id number] CC: Manisha Augustin M.D.; Fax#: [phone]
[2017-06-30] MEDS: Morphine Sulfate 2mg/ml Inj IVP PRN (20:09)
[2017-06-30] MEDS ORDERED: Iron Sucrose 100 MG in NS 55 ML IVPB SCH (21:00)
[2017-07-01] VITALS: BP 130/71
--- NOTE | 2017-07-01 00:15 | Consultation ---
DATE OF CONSULTATION: 06/30/2017 INFECTIOUS DISEASE CONSULTATION CONSULTING PHYSICIAN: Joe Busch M.D. covering for Dr. Doshi. REQUESTING PHYSICIAN: Manisha Augustin M.D. REASON FOR CONSULTATION: Hemorrhagic colitis, rule out infectious etiology. HISTORY OF PRESENT ILLNESS: This is a 22-year-old female with past medical history notable for 3 successful pregnancies through complicated by perhaps pre-eclampsia and a recent ectopic , now appears to have most likely inflammatory bowel disease. The patient was admitted on 06/28/2017 for 1 month of intermittent bright red blood per rectum associated with urgency, abdominal cramping, diarrhea, and some mild tenesmus. The patient reports mild anorexia during this 1 month period along with 5-10 pounds of weight loss. She reports a longstanding history of chronic diarrhea with 2-3 loose, somewhat watery bowel movements per day, but over the last month was the first time she has had blood in her stool. She has not had any fevers or chills. Denies any rash. Denies any arthralgias. She denies any family history of inflammatory bowel disease and she does have 1 brother who is HIV positive. She denies any recent travel, traveling only to [place] about a year ago, but no travel outside the formerly [facility], [facility]. She denies any unusual recent food ingestions and she has not been on any antibiotics except perhaps a brief antibiotic course during her surgery for ectopic about 10 days prior to admission. Upon initial admission to the hospital, she was noted to be afebrile, hemodynamically stable. She did not have leukocytosis. She had a severe microcytic anemia with a hemoglobin of 6.7 g/dL and an MCV of 62, and a mild reactive thrombocytosis. Coagulation panel was normal and her lab evaluation was notable for iron deficiency with a variable iron saturation of 15% and a low ferritin of 5. Her liver function tests were otherwise remarkable for hypoalbuminemia and she did have a mildly elevated HCG compatible with recent ectopic . She did have a urinalysis on presentation that was unremarkable and she underwent colonoscopy this afternoon that demonstrated mild to moderate inflammation extending from the sigmoid colon all the way to the cecum sparing the terminal ileum and did not appear to have evidence of proctitis. She had biopsy of the cecum, transverse colon, sigmoid colon, and the ascending colon and those are pending. She also has evidence of internal and external hemorrhoids. PAST MEDICAL HISTORY: History of x2, most recently with twins 3 years ago, and a recent ectopic , status post surgery 10 days. Denies any history of sexually transmitted infections. MEDICATIONS: She was not on any medications upon admission and currently in the hospital, she is receiving intravenous iron, is on p.r.n. antiemetic Zofran, and MiraLAX as needed. ALLERGIES: No known drug allergies. FAMILY HISTORY: She denies a family history of inflammatory bowel disease or rheumatologic disease of any kind. She denies any sick contacts. She does change her child's diapers, but the children did well. REVIEW OF SYSTEMS: A 11-point review of systems otherwise negative aside from already mentioned in the history of present illness. PHYSICAL EXAMINATION: GENERAL: She is alert and oriented x3. No apparent distress. Nontoxic appearing. Pleasant affect. VITAL SIGNS: The patient has been afebrile throughout hospitalization, currently temperature 98.1 degrees Fahrenheit, blood pressure 109/60, heart rate of 70, respiratory rate 17, and she is saturating 99% on room air. HEENT: No pharyngeal erythema or exudate. No cervical lymphadenopathy. Oral dentition is within normal limits. PULMONARY: Lungs are clear to auscultation bilaterally with good inspiratory effort. CARDIOVASCULAR: Regular rate and rhythm. No murmurs, rubs, or gallops. ABDOMEN: Flat, soft, and nontender to palpation. No hepatosplenomegaly. Healed low transverse scar. No palpable masses. No epigastric pain to deep palpation. GENITOURINARY: Deferred. RECTAL: Deferred. EXTREMITIES: No edema. Peripheral pulses intact. Extremities warm and well perfused. SKIN: No skin lesions. NEUROLOGIC: No focal neurologic deficits. LABORATORY AND DIAGNOSTIC DATA: As described above, she has no imaging during this hospitalization other than a pelvic transvaginal ultrasound performed on the time of admission. 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 Her colonoscopy is highly suspicious for inflammatory bowel disease, in particular ulcerative colitis. She is without fever or leukocytosis. She lacks a compelling exposure travel history. I think it is reasonable to rule out Shiga toxin-producing Escherichia coli or enterohemorrhagic Escherichia coli given blood diarrhea and absence of fevers, but the chronicity makes it unlikely. Also can rule out other bacterial causes of bloody diarrhea to include salmonella, shigella, Campylobacter, Aeromonas, or yersinia. She does not have risk factors for Clostridium difficile, but that can present with hemorrhagic colitis or rule out Clostridium difficile as well. Finally, she lacks appreciable risk factors for amoebic dysentery. In the absence of fevers, I also think this is unlikely, especially without a compelling travel history. 1. Hemorrhagic colitis. 2. Afebrile. 3. No leukocytosis. 4. Hypoalbuminemia. 5. Recent ectopic . 6. Internal and external hemorrhoids. PLAN: 1. Defer to Primary Service and Gastroenterology for disposition. 2. Stool culture. 3. Stool C. difficile screen. 4. We will prefer to get anti-amoeba antigen on stool, but does not appear to be readily available, so obtain a serum anti-amoeba antibody, which I think is likely to be negative. 5. Stool Shiga toxin EIA. 6. Avoid antiobiotics in case proves to be STEC+. 7. Monitor stool results. 8. Monitor temperature and daily CBC. Spent 30 minutes at bedside and in reviewing medical documentation. My impression and recommendations were discussed with the patient and her nurse at bedside at the time of consultation. Again, I am covering for Dr. Doshi. I appreciate this consult. Joe Busch MD DR: JESSIE JOB#: [id number] CC: YAJAIRA
[2017-07-01] MEDS: D5NS 1,000 ML IV SCH ×2 (01:18→10:43)
[2017-07-01] MEDS: Morphine Sulfate 2mg/ml Inj IVP PRN (03:15)
[2017-07-01 04:00] VITALS: BP 109/70
[2017-07-01 05:47] LABS: MEAN CORPUSCULAR HEMOGLOBIN 22.3 PG (27.0-31.0); MEAN CORPUSCULAR HGB CONC 31.9 G/DL (32.0-36.0); MEAN CORPUSCULAR VOLUME 70 FL (80-99); MEAN PLATELET VOLUME 6.3 FL (6.5-10.1); PLATELET COUNT 380 K/UL (150-450); RED BLOOD COUNT 3.38 M/UL (4.20-5.40); RED CELL DISTRIBUTION WIDTH 21.1 % (11.6-14.8); WHITE BLOOD COUNT 6.6 K/UL (4.8-10.8)
[2017-07-01 06:08] LABS: ANION GAP 9 (5-15); CALCIUM 8.2 mg/dL (8.6-10.2); CARBON DIOXIDE 23 mEQ/L (20-30); CHLORIDE 106 mEQ/L (98-107); CREATININE 0.6 mg/dL (0.5-0.9); GLOMERULAR FILTRATION RATE > 60 mL/min (>60); HEMOLYSIS 1; POTASSIUM 3.3 mEQ/L (3.4-4.9); SODIUM 138 mEQ/L (135-145)
--- NOTE | 2017-07-01 09:02 | Diagnostic Imaging Report ---
Indication: PAIN, history of previous ectopic removal Technique: Transabdominal and endovaginal pelvic ultrasound was performed. Findings: The endometrium is hypoechoic and heterogeneous. It measures 1.8 cm in thickness. No intrauterine is identified. There is a small amount of fluid in the cul-de-sac. There is a hypoechoic mass in the right ovary with hyperechoic rim measuring 1.4 cm. The left ovary is unremarkable. Impression: Heterogeneous endometrium. No intrauterine . Mass in the right ovary, likely representing corpus luteum. Small amount of free pelvic fluid. The above findings could be consistent with early intrauterine , too early to be seen on ultrasound, ectopic , , or non state. Correlation with beta-hCG is suggested. The above report is concordant with preliminary reading by Quentin .
--- NOTE | 2017-07-01 11:43 | Diagnostic Imaging Report ---
APPROVED REPORT CPT Code: 95378 Present Symptoms Lower Extremity Pain: Bilateral BILATERAL: Imaging reveals a patent deep venous system bilaterally. There is no evidence of thrombus within the femoral, popliteal or tibial segments. The greater saphenous veins are also within normal limits. Doppler indicates normal spontaneous flow within these segments.
--- NOTE | 2017-07-01 13:00 | Pulmonology Progress Note ---
Assessment/Plan Problems: (1) Acute hemorrhagic colitis (2) Gastrointestinal hemorrhage (3) Anemia Assessment/Plan IV venofoer f/u h/h f/u GI recommendations prbc one unit today then discharge. Subjective ROS Limited/Unobtainable: No Constitutional: Reports: no symptoms HEENT: Repors: no symptoms Respiratory: Reports: no symptoms Allergies: Coded Allergies: No Known Allergies (Unverified , 06/27/17) Objective Last 24 Hour Vital Signs Date Time Temp Pulse Resp B/P Pulse Ox O2 Delivery O2 Flow Rate FiO2 07/01/17 04:00 98.5 77 18 109/70 100 Room Air 07/01/17 03:52 98.6 07/01/17 00:00 98.6 74 19 130/71 100 Room Air 06/30/17 20:00 98.4 80 18 121/75 98 Room Air 06/30/17 16:00 98.1 70 17 109/68 Room Air Intake and Output 06/30/17 07/01/17 19:00 07:00 Intake Total 500 ml 1500 ml Balance 500 ml 1500 ml Intake Oral 250 ml 240 ml IV Total 250 ml 1260 ml # Voids 1 3 General Appearance: WD/WN, no acute distress HEENT: normocephalic Respiratory/Chest: chest wall non-tender, lungs clear Breasts: no masses Cardiovascular: normal peripheral pulses Abdomen: normal bowel sounds, soft, non tender Genitourinary: normal external genitalia Extremities: no clubbing Skin: no rash Microbiology Date/Time Source Procedure Growth Status 06/30/17 19:00 Stool Clostridium difficile Toxin Assay - Final Complete Laboratory Tests 06/30/17 19:00: E.coli Shiga Toxins [Pending] 07/01/17 05:15: White Blood Count 6.6, Red Blood Count 3.38L, Hemoglobin 7.5L, Hematocrit 23.6L , Mean Corpuscular Volume 70L, Mean Corpuscular Hemoglobin 22.3L, Mean Corpuscular Hemoglobin Concent 31.9L, Red Cell Distribution Width 21.1H, Platelet Count 380, Mean Platelet Volume 6.3L, Neutrophils (%) (Auto) , Lymphocytes (%) (Auto) , Monocytes (%) (Auto) , Eosinophils (%) (Auto) , Basophils (%) (Auto) , Sodium Level 138, Potassium Level 3.3L, Chloride Level 106, Carbon Dioxide Level 23, Anion Gap 9, Blood Urea Nitrogen 5L, Creatinine 0.6, Estimat Glomerular Filtration Rate > 60, Glucose Level 89, Calcium Level 8.2L Current Medications Medications (Trade) Dose Ordered Sig/Mayank Route PRN Reason Start Time Stop Time Status Last Admin Dose Admin Acetaminophen 650 mg 650 mg Q4H PRN ORAL Mild Pain/Temp > 100.5 06/29/17 22:00 07/29/17 21:59 06/29/17 21:52 Al Hydroxide/Mg Hydroxide (Mylanta II) 30 ml Q6H PRN ORAL dyspepsia 06/29/17 04:15 07/29/17 04:14 Dextrose (Dextrose 50%) STAT PRN IV Hypoglycemia 06/29/17 21:15 07/29/17 21:14 Dextrose/Sodium Chloride (D5ns) 1,000 ml @ 100 mls/hr Q10H IV 06/28/17 23:15 07/28/17 23:14 07/01/17 10:43 Diphenhydramine HCl (Benadryl) 25 mg Q6H PRN ORAL Itching/Pruritis 06/29/17 04:15 07/29/17 04:14 Iron Sucrose/ Sodium Chloride (Venofer/Sodium Chloride) 60 ml @ 240 mls/hr BEDTIME IVPB 06/30/17 21:00 07/04/17 21:14 06/30/17 20:21 Morphine Sulfate (Morphine Sulfate) 2 mg EVERY 4 HOURS PRN IVP severe Pain (Pain Scale 7-10) 06/29/17 01:00 07/06/17 00:59 07/01/17 03:15 Nitroglycerin (Ntg) 0.4 mg Q5M X 3 DOSES PRN SL Prn Chest Pain 06/28/17 23:15 07/28/17 23:14 Ondansetron HCl (Zofran) 4 mg Q6H PRN IVP Nausea & Vomiting 06/29/17 18:00 07/29/17 17:59 06/29/17 18:27 Polyethylene Glycol (Miralax) 17 gm HSPRN PRN ORAL Constipation 06/29/17 22:15 07/29/17 22:14 Temazepam (Restoril) 15 mg HSPRN PRN ORAL Insomnia 8/6/17 22:15 07/06/17 22:14 PARK FARRELL Jul 01, 2017 13:00
--- NOTE | 2017-07-01 14:50 | Infectious Diseases Prog Note ---
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 Her colonoscopy is highly suspicious for inflammatory bowel disease, in particular ulcerative colitis. She is without fever or leukocytosis. Ruling out enteroinvasive bacterial pathogens including STEC, r/o amoebic dysentery, ruled out for C diff. anticipate infectious w/u will be negative. 1. Hemorrhagic colitis, likely IBD. 2. Afebrile. 3. No leukocytosis. 4. Hypoalbuminemia. 5. Recent ectopic . 6. Internal and external hemorrhoids. 7. C diff negative PLAN: --f/u stool STEC Shiga toxin EIA --f/u stool cx --f/u serum E histolytica Ab --avoid antibiotics. no indication for antiobiotics. --okay for discharge from ID standpoint. Subjective Constitutional: Reports: no symptoms Respiratory: Reports: no symptoms Cardiovascular: Reports: no symptoms Gastrointestinal/Abdominal: Reports: blood in stool, diarrhea Genitourinary: Reports: no symptoms Skin: Reports: no symptoms Musculoskeletal: Reports: no symptoms Allergies: Coded Allergies: No Known Allergies (Unverified , 06/27/17) Objective Vital Signs Last 24 Hour Vital Signs Date Time Temp Pulse Resp B/P Pulse Ox O2 Delivery O2 Flow Rate FiO2 07/01/17 04:00 98.5 77 18 109/70 100 Room Air 07/01/17 03:52 98.6 07/01/17 00:00 98.6 74 19 130/71 100 Room Air 06/30/17 20:00 98.4 80 18 121/75 98 Room Air 06/30/17 16:00 98.1 70 17 109/68 Room Air Height (Feet): 5 Height (Inches): 5.00 Weight (Pounds): 165 Objective GENERAL: She is alert and oriented x3. No apparent distress. Nontoxic appearing. Pleasant affect. VITAL SIGNS: The patient has been afebrile throughout hospitalization, currently temperature 98.1 degrees Fahrenheit, blood pressure 109/60, heart rate of 70, respiratory rate 17, and she is saturating 99% on room air. HEENT: No pharyngeal erythema or exudate. No cervical lymphadenopathy. Oral dentition is within normal limits. PULMONARY: Lungs are clear to auscultation bilaterally with good inspiratory effort. CARDIOVASCULAR: Regular rate and rhythm. No murmurs, rubs, or gallops. ABDOMEN: Flat, soft, and nontender to palpation. No hepatosplenomegaly. Healed low transverse scar. No palpable masses. No epigastric pain to deep palpation. GENITOURINARY: Deferred. RECTAL: Deferred. EXTREMITIES: No edema. Peripheral pulses intact. Extremities warm and well perfused. SKIN: No skin lesions. NEUROLOGIC: No focal neurologic deficits. Microbiology Date/Time Source Procedure Growth Status 06/30/17 19:00 Stool Clostridium difficile Toxin Assay - Final Complete Laboratory Tests Test 06/30/17 19:00 07/01/17 05:15 E.coli Shiga Toxins Pending White Blood Count 6.6 K/UL (4.8-10.8) Red Blood Count 3.38 M/UL (4.20-5.40) L Hemoglobin 7.5 G/DL (12.0-16.0) L Hematocrit 23.6 % (37.0-47.0) L Mean Corpuscular Volume 70 FL (80-99) L Mean Corpuscular Hemoglobin 22.3 PG (27.0-31.0) L Mean Corpuscular Hemoglobin Concent 31.9 G/DL (32.0-36.0) L Red Cell Distribution Width 21.1 % (11.6-14.8) H Platelet Count 380 K/UL (150-450) Mean Platelet Volume 6.3 FL (6.5-10.1) L Neutrophils (%) (Auto) % (45.0-75.0) Lymphocytes (%) (Auto) % (20.0-45.0) Monocytes (%) (Auto) % (1.0-10.0) Eosinophils (%) (Auto) % (0.0-3.0) Basophils (%) (Auto) % (0.0-2.0) Sodium Level 138 mEQ/L (135-145) Potassium Level 3.3 mEQ/L (3.4-4.9) L Chloride Level 106 mEQ/L (98-107) Carbon Dioxide Level 23 mEQ/L (20-30) Anion Gap 9 (5-15) Blood Urea Nitrogen 5 mg/dL (7-23) L Creatinine 0.6 mg/dL (0.5-0.9) Estimat Glomerular Filtration Rate > 60 mL/min (>60) Glucose Level 89 mg/dL (74-106) Calcium Level 8.2 mg/dL (8.6-10.2) L Current Medications Medications (Trade) Dose Ordered Sig/Mayank Route PRN Reason Start Time Stop Time Status Last Admin Dose Admin Acetaminophen 650 mg 650 mg Q4H PRN ORAL Mild Pain/Temp > 100.5 06/29/17 22:00 07/29/17 21:59 06/29/17 21:52 Al Hydroxide/Mg Hydroxide (Mylanta II) 30 ml Q6H PRN ORAL dyspepsia 06/29/17 04:15 07/29/17 04:14 Dextrose (Dextrose 50%) STAT PRN IV Hypoglycemia 06/29/17 21:15 07/29/17 21:14 Dextrose/Sodium Chloride (D5ns) 1,000 ml @ 100 mls/hr Q10H IV 06/28/17 23:15 07/28/17 23:14 07/01/17 10:43 Diphenhydramine HCl (Benadryl) 25 mg Q6H PRN ORAL Itching/Pruritis 06/29/17 04:15 07/29/17 04:14 Iron Sucrose/ Sodium Chloride (Venofer/Sodium Chloride) 60 ml @ 240 mls/hr BEDTIME IVPB 06/30/17 21:00 07/04/17 21:14 06/30/17 20:21 Morphine Sulfate (Morphine Sulfate) 2 mg EVERY 4 HOURS PRN IVP severe Pain (Pain Scale 7-10) 06/29/17 01:00 07/06/17 00:59 07/01/17 03:15 Nitroglycerin (Ntg) 0.4 mg Q5M X 3 DOSES PRN SL Prn Chest Pain 06/28/17 23:15 07/28/17 23:14 Ondansetron HCl (Zofran) 4 mg Q6H PRN IVP Nausea & Vomiting 06/29/17 18:00 07/29/17 17:59 06/29/17 18:27 Polyethylene Glycol (Miralax) 17 gm HSPRN PRN ORAL Constipation 06/29/17 22:15 07/29/17 22:14 Temazepam (Restoril) 15 mg HSPRN PRN ORAL Insomnia 06/29/17 22:15 07/06/17 22:14 Joe Busch M.D. Jul 01, 2017 14:49
--- NOTE | 2017-07-01 15:29 | GI Progress Note ---
Assessment/Plan Problems: (1) Acute hemorrhagic colitis ICD Codes: K52.9 - Noninfective gastroenteritis and colitis, unspecified SNOMED: 07780639 (2) Anemia ICD Codes: D64.9 - Anemia, unspecified SNOMED: 064135063 (3) Right calf pain ICD Codes: M79.661 - Pain in right lower leg SNOMED: 637125599 (4) Gastrointestinal hemorrhage ICD Codes: K92.2 - Gastrointestinal hemorrhage, unspecified SNOMED: 06488876 Status: stable Status Narrative S/P Colonoscopy SUMMARY OF FINDINGS: 1. Colitis starting from sigmoid colon all the way to the cecum suspicious for ulcerative colitis, which has been biopsied rectum and terminal ileum. 2. Internal and external hemorrhoids. RECOMMENDATIONS: okay for DC per GI standpoint regular diet, tolerating anusol HC prn outpatient follow up with us follow up biopsy Subjective Subjective rectal bleeding resolved Objective Last 24 Hour Vital Signs Date Time Temp Pulse Resp B/P Pulse Ox O2 Delivery O2 Flow Rate FiO2 07/01/17 04:00 98.5 77 18 109/70 100 Room Air 07/01/17 03:52 98.6 07/01/17 00:00 98.6 74 19 130/71 100 Room Air 06/30/17 20:00 98.4 80 18 121/75 98 Room Air 06/30/17 16:00 98.1 70 17 109/68 Room Air Intake and Output 06/30/17 07/01/17 19:00 07:00 Intake Total 500 ml 1500 ml Balance 500 ml 1500 ml Intake Oral 250 ml 240 ml IV Total 250 ml 1260 ml # Voids 1 3 Laboratory Tests Test 06/30/17 19:00 07/01/17 05:15 E.coli Shiga Toxins Pending White Blood Count 6.6 K/UL (4.8-10.8) Red Blood Count 3.38 M/UL (4.20-5.40) L Hemoglobin 7.5 G/DL (12.0-16.0) L Hematocrit 23.6 % (37.0-47.0) L Mean Corpuscular Volume 70 FL (80-99) L Mean Corpuscular Hemoglobin 22.3 PG (27.0-31.0) L Mean Corpuscular Hemoglobin Concent 31.9 G/DL (32.0-36.0) L Red Cell Distribution Width 21.1 % (11.6-14.8) H Platelet Count 380 K/UL (150-450) Mean Platelet Volume 6.3 FL (6.5-10.1) L Neutrophils (%) (Auto) % (45.0-75.0) Lymphocytes (%) (Auto) % (20.0-45.0) Monocytes (%) (Auto) % (1.0-10.0) Eosinophils (%) (Auto) % (0.0-3.0) Basophils (%) (Auto) % (0.0-2.0) Sodium Level 138 mEQ/L (135-145) Potassium Level 3.3 mEQ/L (3.4-4.9) L Chloride Level 106 mEQ/L (98-107) Carbon Dioxide Level 23 mEQ/L (20-30) Anion Gap 9 (5-15) Blood Urea Nitrogen 5 mg/dL (7-23) L Creatinine 0.6 mg/dL (0.5-0.9) Estimat Glomerular Filtration Rate > 60 mL/min (>60) Glucose Level 89 mg/dL (74-106) Calcium Level 8.2 mg/dL (8.6-10.2) L Microbiology Date/Time Source Procedure Growth Status 06/30/17 19:00 Stool Clostridium difficile Toxin Assay - Final Complete Height (Feet): 5 Height (Inches): 5.00 Weight (Pounds): 165 General Appearance: no apparent distress, alert Cardiovascular: normal rate Respiratory/Chest: normal breath sounds, no respiratory distress Abdominal Exam: normal bowel sounds, non tender, soft Extremities: normal range of motion Lexy Brady N.P. Jul 01, 2017 15:29
[2017-07-01 16:00] VITALS: BP 136/67
[2017-07-01 20:00] VITALS: BP 124/71
[2017-07-01] MEDS ORDERED: D5NS 1000ml IV ONE (21:44)
[2017-07-01] MEDS ORDERED: Tubing Blood Filter IV ONE (21:44)
[2017-07-01] MEDS ORDERED: Tubing IV Secondary IV ONE (21:44)
[2017-07-02 09:24] LABS: OTHERS PATHOLOGIST COMMENT
--- NOTE | 2017-07-03 15:47 | Discharge Summary ---
Discharge Summary Hospital Course Date of Admission Jun 27, 2017 at 18:32 Date of Discharge Jul 01, 2017 at 21:45 Admitting Diagnosis SEVERE ANEMIA HPI Sanju Callahan is a 22 year old female who was admitted on Jun 27, 2017 at 18:32 for Severe Anemia Hospital Course [id number] Discharge Discharge Disposition Patient was discharged to Home (01) Discharge Diagnoses: Adina Prado NP Jul 03, 2017 15:47
--- NOTE | 2017-07-03 22:01 | Discharge Summary 2 SIG ---
DATE OF ADMISSION: 06/27/2017 DATE OF DISCHARGE: 07/01/2017 CONSULTANTS: 1. Cristobal Cesar M.D. 2. Joe Busch M.D. BRIEF HOSPITAL COURSE: The patient is a 22-year-old female without significant medical history, presented to ED for evaluation of GI bleed. The patient reported intermittent episodes of bloody stools with associated abdominal cramping and diarrhea. She had a surgery a week prior for left-sided ectopic and reported having right-sided pain radiating down to the right calf. On evaluation at ED, she was found to have anemia with hemoglobin of 6.7 and hematocrit of 21.3. HCG was positive, which is likely secondary to recent ectopic . Pelvic ultrasound showed no evidence of intrauterine . She was admitted to telemetry for GI bleed with acute anemia and for evaluation of right calf pain. She was given initially two units of packed RBC blood transfusion. Blood levels stabilized, however, on 07/01/2017, hemoglobin again dropped to 7.5 requiring another two units of packed RBC transfusion. She received a total of four units during inpatient stay. Colonoscopy was done by Dr. Cesar and findings showed colitis starting from sigmoid colon all the way to the cecum with presence of internal and external hemorrhoids. There was no fever and no leukocytosis and no travel history. E. coli antibody and toxin were negative. Stool C. difficile was negative and culture did not isolate Salmonella, Shigella, or Campylobacter. No antibiotic was indicated. Hemorrhagic colitis likely from IBD. She was tolerating diet and was given Anusol-HC as needed. Venous duplex was negative. She was eventually discharged home to follow-up with PMD. FINAL DIAGNOSES: 1. Acute hemorrhagic colitis. 2. Acute gastrointestinal bleed with acute anemia requiring blood transfusion. 3. Recent ectopic . 4. Internal and external hemorrhoids. 5. Status post colonoscopy on 06/30/2017 with findings of colitis. DISPOSITION: The patient was discharged home. DISCHARGE MEDICATIONS: Refer to medication list. Manisah Augustin M.D. I have been assigned to dictate discharge summary on this account and I was not involved in the patient's management. Adina Prado N.P. DR: YAHIR JOB#: [id number] CC: [email or web address]
== END 2017-07-01 21:45 | disposition home or self-care (01) | DRG 254 ==
LOC: EMR 16:19 → 2E 18:32 → EDBEDREQ 19:28 → 3E 06-28 23:30
PROC: 30233N1 Transfusion of Nonautologous Red Blood Cells into Peripheral Vein, Percutaneous Approach (ICD-10-PCS; principal; 2017-06-27)
PROC: 0DBH8ZX Excision of Cecum, Via Natural or Artificial Opening Endoscopic, Diagnostic (ICD-10-PCS; 2017-06-30)
PROC: 0DBK8ZX Excision of Ascending Colon, Via Natural or Artificial Opening Endoscopic, Diagnostic (ICD-10-PCS; 2017-06-30)
PROC: 0DBL8ZX Excision of Transverse Colon, Via Natural or Artificial Opening Endoscopic, Diagnostic (ICD-10-PCS; 2017-06-30)
DX: K58.0 Irritable bowel syndrome with diarrhea (principal); D62 Acute posthemorrhagic anemia; M79.661 Pain in right lower leg; Z98.890 Other specified postprocedural states; K64.4 Residual hemorrhoidal skin tags; K64.8 Other hemorrhoids; E88.09 Other disorders of plasma-protein metabolism, not elsewhere classified
CPT/HCPCS: 36415; 76856; 80048; 80053; 81003; 81025; 82150; 82607; 82728; 82746; 83540; 83550; 83690; 84702; 85007; 85025; 85610; 85730; 86753; 86850; 86900; 86901; 86920; 87045; 87324; 87427; 93970; 94003; 94150; J2405